=== PATIENT | female | born 1970 | race Caucasian/White ===

== ENCOUNTER 2016-06-04 16:46 | Emergency (ER) | payer OTHER ==
[~2016-06-04] VITALS: Ht 162.6 cm; Wt 78.2 kg
[2016-06-04 17:02] VITALS: BP 110/65
== END 2016-06-04 18:07 | disposition home or self-care (01) ==
LOC: ED 16:46
DX: L03.116 Cellulitis of left lower limb (principal); Z86.73 Personal history of transient ischemic attack (TIA), and cerebral infarction without residual deficits

== ENCOUNTER 2019-09-25 12:33 | Inpatient (IN) | payer OTHER ==
[~2019-09-25] VITALS: Ht 162.6 cm; Wt 84.4 kg
--- NOTE | 2019-09-25 12:44 | NUR ---
EKG IN PROGRESS.
--- NOTE | 2019-09-25 13:00 | NUR ---
PT BIBS C/O CP X2DAYS. PT AAOX4, TAMAZIGHT SPEAKING, AND AMBULATORY. PER PT, THE PAIN STARTED 2DAYS AGO 08/16 AND RADIATES TO THE LEFT ARM. PT STS PRESSURE-LIKE PAIN. PT ADMITS TO SOB AND DIZZINESS BUT DENIES N/V/D/C. PT PLACED ON FULL CM AND MD MURPHY AT BEDSIDE FOR MSE. AWAITING FURTHER ORDERS
--- NOTE | 2019-09-25 13:16 | NUR ---
PT TO CT VIA [facility]
[2019-09-25 13:19] LABS: BASOPHIL % 0.3 % (0-2); PLATELET COUNT 290 x10^3mcL (130-400); RED CELL DISTRIBUTION WIDTH 13.1 % (11.5-14.5)
--- NOTE | 2019-09-25 13:30 | NUR ---
PER MD MURPHY, GIVE 1 TAB OF NITRO ONLY, REASSES PT PAIN, THEN GIVE NITRO PASTE IF PAIN PERSISTS.
[2019-09-25 13:32] LABS: CALCIUM 8.6 mg/dL (8.5-10.1); CARBON DIOXIDE 32.6 mmol/L (21-32); CHLORIDE SERUM 105 mmol/L (98-107); CREATININE SERUM 0.9 mg/dL (0.6-1.0); GFR1 > 60 mL/min; GLUCOSE SERUM 88 mg/dL (74-106); POTASSIUM SERUM 3.7 mmol/L (3.5-5.1); SODIUM SERUM 141 mmol/L (136-145)
[2019-09-25 13:34] LABS: UA SPECIFIC GRAVITY >=1.030 (1.005-1.035); microscopic required? YES; urine erythrocyte 1+ (NEGATIVE)
--- NOTE | 2019-09-25 13:40 | NUR ---
PT STS CP "IS BETTER" 05/17. WILL HOLD NITRO PASTE PER MD INSTRUCTION. ONLY 1 TAB NITRO GIVEN SUBLINGUALLY. PT ON FULL CM, S/F. CALL LIGHT WITHIN REACH
[2019-09-25 13:41] LABS: ALBUMIN 3.6 g/dL (3.4-5.0); ALKALINE PHOSPHATASE 85 U/L (46-116); ALT/SGPT 33 U/L (14-59); AST/SGOT 17 U/L (15-37); BILIRUBIN TOTAL 0.9 mg/dL (0.20-1.00); CHOLESTEROL 173 mg/dL (<200); HDL CHOLESTEROL 43 mg/dL (40-60); LIPASE 78 IU/L (73-393); MAGNESIUM 1.9 mg/dL (1.8-2.4); T4(THYROXINE) 8.5 ug/dL (4.7-13.3); TOTAL PROTEIN, SERUM 7.6 g/dL (6.4-8.2)
--- NOTE | 2019-09-25 13:47 | NUR ---
GIVE NITRO-PASTE PER MD MURPHY
--- NOTE | 2019-09-25 13:48 | NUR ---
GIVE NITRO-PASTE PER MD MURPHY
[2019-09-25 13:52] LABS: AMPHETAMINE QUAL UR NONE DETECTED (See below)
[2019-09-25] MEDS ORDERED: ALBUTEROL1.25 MG/3 IH (13:52)
--- NOTE | 2019-09-25 14:41 | NUR ---
REPORT GIVEN TO YUMIKO AND PT PREPPRED FOR ADMIT
[2019-09-25 15:07] VITALS: BP 110/62
[2019-09-25 15:10] VITALS: BP 119/66
--- NOTE | 2019-09-25 15:19 | NUR ---
SEEN AOX4, NOT IN DISTRESS, TELE 27, NSR,PALPALBE PULSES, EDEMA NON PITTING ON ALL EXTREMITIES, +BS, VOIDS WITH NO DYSURIA, GENERALIZED WEAKNESS, SKIN DRY AND INTACT, HEADACHE, LBP PAIN AND CHEST PAIN, 4/10, IV INTACT AND PATENT, RAC, NO REDNESS OR SWELLING.CALL LIGHT WITHIN REACH, BED AT LOWEST POSITION, SIDE RAILS UP.
--- NOTE | 2019-09-25 15:41 | NUR ---
NS INFUSING WELL AT 100CC/HR. NO REDNESS OR SWELLING. MRSA DONE
[2019-09-25 16:21] LABS: T3 TOTAL 1.35 ng/mL
[2019-09-25 16:23] LABS: FREE T4 1.04 ng/dL (0.76-1.46)
--- NOTE | 2019-09-25 16:29 | NUR ---
DR MASSEY MADE AWARE OF PATIENT'S PAIN MEDICATION AND ALLERGIES. PER DR MASSEY , HE WILL ASK HIS SENIOR WHAT OTHER MEDICATIONS HE CAN GIVE.
--- NOTE | 2019-09-25 17:53 | NUR ---
SPOKE WITH DR MASSEY REGARDING PAIN MEDICATION. PER DR MASSEY , HE WILL ORDER IBUPROFEN.
--- NOTE | 2019-09-25 19:22 | NUR ---
RECEIVED PT SITTING UP RIGHT IN BED. AAOX4. SPEECH IS CLEAR. DENIES GOMEZ. ON TELE #27 [address] SR. C/O 05/17 R SIDED CHEST PAIN. STATES IT IS TOLERABLE AT THIS TIME. BREATHING IS EVEN AND UNLABORED ON RA. LUNG SOUNDS CTA. DENIES SOB. VOIDS FREELY. DENIES DYSURIA. AMBULATORY. SKIN INTACT. IV TO RAC PATENT AND INTACT. NO ERYTHEMA NOTED. BED IN LOWEST POSITION. CALL LIGHT WITHIN REACH. WILL CONTINUE TO MONITOR.
--- NOTE | 2019-09-25 21:00 | NUR ---
PT RESTING COMFORTABLY. ROUTINE MEDICATIONS ADMINISTERED AND TOLERATED WELL. C/O MILD SOB. SAO2 READING 97%. PUT PT ON 1LNC FOR COMFORT. WILL CONTINUE TO MONITOR.
[2019-09-25 21:14] VITALS: BP 107/57
--- NOTE | 2019-09-25 23:15 | NUR ---
PT C/O 08/16 CHEST PAIN, STATED IT WAS PRESSURE. CALLED DR MONTES. STATED HE WILL PUT ORDER IN. PT ALSO REQUESTING SLEEPING PILL. STATED HE WILL PUT ORDER IN.
--- NOTE | 2019-09-26 00:41 | NUR ---
ADMINISTERED TORADOL ONE TIME DOSE PER MAR ORDER. WILL REASSESS AND CHECK EFFECTIVENESS.
--- NOTE | 2019-09-26 01:33 | NUR ---
MAZIN ONE TIME DOSE ADMINSTERED AT THIS TIME. PT STATES SHE FELT RELIEF FROM THE TORADOL AND SAYS SHE HAS 0/10 PAIN. WILL CONITNUE TO MONITOR.
--- NOTE | 2019-09-26 04:48 | NUR ---
PT RESTING COMFORTABLY. BREATHING IS EVEN AND UNLABORED ON RA. NO RESP DISTRESS NOTED. WILL CONTINUE TO MONITOR.
[2019-09-26 05:47] VITALS: BP 106/63
--- NOTE | 2019-09-26 06:31 | NUR ---
PT RESTED COMFORTABLY THROUGHOUT THE NIGHT WITH NO ACUTE EVENTS OCCURRING DURING THE SHIFT. COMFORT AND SAFETY MEASURES MAINTAINED. ALL NEEDS ASSESSED AND ATTENDED TO. WILL CONTINUE TO MONITOR AND ENDORSE CARE TO DAY SHIFT NURSE.
[2019-09-26 06:39] LABS: CALCIUM 8.9 mg/dL (8.5-10.1); CARBON DIOXIDE 32.7 mmol/L (21-32); CHLORIDE SERUM 104 mmol/L (98-107); CREATININE SERUM 0.7 mg/dL (0.6-1.0); GFR1 > 60 mL/min; GLUCOSE SERUM 100 mg/dL (74-106); SODIUM SERUM 139 mmol/L (136-145)
[2019-09-26 06:49] LABS: BASOPHIL % 0.3 % (0-2); PLATELET COUNT 263 x10^3mcL (130-400); RED CELL DISTRIBUTION WIDTH 13.3 % (11.5-14.5)
--- NOTE | 2019-09-26 07:05 | NUR ---
RECIEVED PT RESTING IN BED WITH NO C/O PAIN OR DISTRESS. A/O X4 WITH NO GOMEZ OR DIZZINES. TELE#27 CONNECTED TO PT AND SHE DENIES ANY CP OR PRESSURE. LUNGS CTAB AND PT FOUND ON 1 LPM NC, NO SOB NOTED. SKIN CDI. RAC IV CDI AND PATENT. SAFETY PRECAUTIONS IN PLACE, CALL LIGHT WITHIN REACH, WILL MONITOR.
[2019-09-26 08:15] VITALS: BP 106/75
--- NOTE | 2019-09-26 12:09 | NUR ---
MOTRIN GIVEN PER EMAR FOR C/O 08/16 GOMEZ, WILL MONITOR.
[2019-09-26 15:00] VITALS: BP 108/76
[2019-09-26] MEDS ORDERED: NIT0.4 SL (15:31)
[2019-09-26] MEDS ORDERED: ALBUTEROL1.25 MG/3 IH (15:31)
[2019-09-26] MEDS ORDERED: NOVAPLUS LIDOCAINE5% TD (15:34)
[2019-09-26] MEDS ORDERED: LEXAPRO5 M1 PO (15:37)
[2019-09-26 16:31] VITALS: BP 108/76
--- NOTE | 2019-09-26 17:21 | NUR ---
PT STABLE TO DISCHARGE PER MD ORDER. ALL DISCHARGE INSTRUCTIONS, EDUCATION, AND PRESCRIPTIONS GIVEN TO PT AND SHE VERBALIZES UNDERSTANDING. IV REMOVEVED WITH CATHETER INTACT, NO REDNESS OR INFLAMMATION NOTED TO SITE. TELE BOX #27 RETURNED TO MT. ID BANDS REMOVED FROM PT ARM. PT ESCORTED DOWN TO LOBBY VIA WC BY [facility] WITH ALL PERSONAL BELONGINGS IN HAND.
== END 2019-09-26 17:58 | disposition home or self-care (01) | DRG 203 ==
LOC: ED 12:33 → DU 14:07
PROVIDERS: Emergency Medicine; ADMIT Student in an Organized Health Care Education/Training Program; ATTEND Student in an Organized Health Care Education/Training Program
DX: R07.89 Other chest pain (principal); E03.9 Hypothyroidism, unspecified; J45.909 Unspecified asthma, uncomplicated; Z60.2 Problems related to living alone; Z82.49 Family history of ischemic heart disease and other diseases of the circulatory system; Z86.73 Personal history of transient ischemic attack (TIA), and cerebral infarction without residual deficits; Z88.0 Allergy status to penicillin; Z88.6 Allergy status to analgesic agent; Z88.8 Allergy status to other drugs, medicaments and biological substances; Z90.49 Acquired absence of other specified parts of digestive tract; Z83.3 Family history of diabetes mellitus; Z79.899 Other long term (current) drug therapy
CPT/HCPCS: 82962; 83880; 84439; G0378; J1885; J7030; Q0092